=== PATIENT | male | born 1945 | race African-American/Black ===

== ENCOUNTER 2017-02-09 17:45 | Inpatient (IN) | payer MEDICARE ==
[~2017-02-09] VITALS: Ht 180.3 cm; Wt 113.0 kg
[~2017-02-09 17:45] MED LIST: ACCUPRIL5 MG PO; ACTOS30 MG OR; ADLT ASA LOW81 MG OR; AMITRIPTYLIN25 MG OR; AMITRIPTYLIN25 MG PO; BACTROBAN2 % EX; BL ASPIRIN325 MG PO; CEPHALEXIN500 MG OR; CIPROFLOXACN500 MG PO; DIGOX0.25 MG PO; DILAUDID 2MG2 MG/TA1 PO; DILTIAZEM240 M1 OR; DIOVAN320 MG PO; DIOVAN80 MG OR; DYRENIUM50 MG OR; ELAVIL25 MG PO; FERROUS SULF325 M2 PO; FUROSEMIDE40 MG PO; GABAPENTIN300 MG PO; HYDROCHLOROT50 MG OR; IMODIUM2 MG PO; ISOSORBIDE MONO30 MG PO; JANUVIA100 MG PO; KEFLEX500 M1 PO; KLOR-CON M2020 MEQ PO; LOSARTAN POTAS100 MG PO; LOVASTATIN20 M1 PO; LOVASTATIN20 MG PO; MAXIDE1 COMBO OR; MAXIDE1 COMBO PO; METFORMIN1000 MG PO; METOPROL TAR100 MG PO; METOPROL TAR50 MG OR; NITROQUICK0.4 MG SL; NOVOLIN 70/30 SC; PANTOPRAZOLE SO40 MG PO; PLAVIX75 MG OR; PROCARDIA XL30 MG PO; PROTONIX40 MG PO; RANITIDINE150 M1 OR; SIMVASTATIN80 MG OR; TRIAMT/HCTZ1 CAP OR; ULTRAM50 M1 PO; ZETIA10 MG OR; ZETIA10 MG PO
--- NOTE | 2017-02-09 17:57 | NUR ---
PT. TO ROOM 10 VIA EMS WITH C/O FALLING APPROX. 3 TIMES TODAY AFTER TRYING TO GO TO THE BATHROOM. PT. STATES HE HAS DIARRHEA FOR 2-3 DAYS. PT. TEMP. 101.3.
[2017-02-09] MEDS ORDERED: NOVOLIN 70/30 SC ×2 (18:38→18:39)
[2017-02-09 18:49] LABS: HEMATOCRIT 36.6 % (39.0-50.0); HEMOGLOBIN 11.5 g/dl (14.0-18.0); IMMATURE GRANULOCYTES 0.4 % (0.0-1.0); MEAN CORPUSCULAR HGB 26.1 pG CALC (26.0-32.0); MEAN CORPUSCULAR HGB CONC 31.4 g/L CALC (32.0-36.0); NEUT# 8.08 thou/uL (1.82-7.42); RED BLOOD COUNT 4.41 mill/uL (4.70-6.10); RED CELL DISTRI WIDTH 16.2 % (11.5-15.5)
--- NOTE | 2017-02-09 18:56 | NUR ---
PO TYLENOL AND PO MOTRIN GIVEN PER MD ORDER.
[2017-02-09 19:05] LABS: ALBUMIN 3.7 g/dL (3.2-5.0); BILIRUBIN, TOTAL 0.3 mg/dL (0.0-1.4); CALCIUM 9.1 mg/dL (8.4-10.2); CREATININE 1.5 mg/dL (0.7-1.3); POTASSIUM 3.9 mmol/l (3.5-5.1); TOTAL PROTEIN 7.4 g/dL (6.3-8.2)
[2017-02-09 19:24] LABS: C. DIFFICILE TOXIN A&B NEGATIVE (NEGATIVE)
--- NOTE | 2017-02-09 19:31 | NUR ---
1MP. D 50 IV GIVEN PER MD ORDER.
--- NOTE | 2017-02-09 20:00 | NUR ---
IV ABT. GIVEN PER MD ORDER.
--- NOTE | 2017-02-09 20:42 | NUR ---
PT. INCONTINENT OF A MODERATE AMT. SOFT MUCUS GREEN BM, NARENDRA CARE GIVEN.
--- NOTE | 2017-02-09 20:51 | NUR ---
MD IN ROOM TO DISCUSS CLINICAL FINDINGS WITH PT. AND ALSO MAKE HIM AWARE OF ADMISSION, VERBALIZED UNDERSTANDING.
--- NOTE | 2017-02-09 21:30 | NUR ---
Admission Note Report Given to: CAROLYNE HARMON Transported by: Wheelchair X Stretcher Transported with: X Nurse Transporter X Patent IV O2 X [employer] Sales Manager
--- NOTE | 2017-02-09 21:35 | NUR ---
TRANSFERED TO ICU VIA STRETCHER.
[2017-02-09 21:55] VITALS: BP 162/82
--- NOTE | 2017-02-09 23:53 | NUR ---
PT. PROVIDED WITH BLANKET. NO DIARRHEA AT THIS TIME. IV ANTIBIOTIC INFUSING WITHOUT SIGNS OF REACTION. PT. DENIES COMPLAINTS OF PAIN OR NEED AT THIS TIME. WILL CONTINUE TO REASSESS. DOOR PULLED FOR PATIENT PRIVACY.
[2017-02-10] VITALS (7 sets, daily range): BP systolic 135–175; BP diastolic 66–84
--- NOTE | 2017-02-10 00:32 | NUR ---
REMAINS WITHOUT INCONTINENCE AT THIS TIME. VSS. HR 90 SR. IV FLUIDS AND ANTIBIOTICS CONTINUE TO INFUSE WITHOUT SX OF INFILTRATION OR EXTRAVASATION. PT. PROVIDED WITH BLANKET AT THIS TIME. VOICES NO COMPLAINTS, CONCERNS, NEEDS OR PAIN AT THIS TIME. CALL LIGHT REMAIN WITHIN REACH.
[2017-02-10 01:58] LABS: URINE BILIRUBIN - DIPSTICK NEGATIVE (NEGATIVE); URINE BLOOD DIPSTICK LARGE (NEGATIVE); URINE CLARITY SLIGHT CLOUDY; URINE COLOR YELLOW; URINE GLUCOSE - DIPSTICK NEGATIVE (NEGATIVE); URINE KETONE NEGATIVE (NEGATIVE); URINE LEUK ESTERASE NEGATIVE (NEGATIVE); URINE NITRITE - DIPSTICK NEGATIVE (Negative); URINE PH 5.5 (4.5-8.0); URINE PROTEIN - DIPSTICK >=300 mg/dL (NEG-TRACE); URINE SPECIFIC GRAVITY >=1.030; URINE UROBILINOGEN - DIPSTICK 0.2 E.U./dL (0.2)
[2017-02-10 02:08] LABS: URINE BACTERIA FEW hpf; URINE COARSE GRANULAR CAST FEW lpf; URINE FINE GRAN CAST FEW lpf; URINE HYALINE CAST MODERATE lpf (NONE-RARE)
[2017-02-10 02:09] LABS: URINE AMORPH SEDIMENT FEW hpf (NONE-FER)
--- NOTE | 2017-02-10 02:45 | NUR ---
PT. RESTING IN BED WITH EYES CLOSED. PROVIDED WITH URINAL AT THIS TIME. APPROX 250 CC URINARY OUT PUT AT THIS TIME. IV FLUIDS CONTINUE TO INFUSE AT 125/HR. DENIES COMPLAINTS.
--- NOTE | 2017-02-10 05:30 | NUR ---
PT. CLEANSED OF STOOL AT THIS TIME. ALL LINENS CHANGED PT. IS INCONTINENT OF STOOL.
[2017-02-10 05:46] LABS: HEMATOCRIT 33.5 % (39.0-50.0); HEMOGLOBIN 10.4 g/dl (14.0-18.0); IMMATURE GRANULOCYTES 0.1 % (0.0-1.0); MEAN CELL VOLUME 83.3 fL CALC (80.0-100.0); MEAN CORPUSCULAR HGB 25.9 pG CALC (26.0-32.0); NEUT# 5.95 thou/uL (1.82-7.42); RED BLOOD COUNT 4.02 mill/uL (4.70-6.10); RED CELL DISTRI WIDTH 15.9 % (11.5-15.5)
[2017-02-10 06:05] LABS: ANION GAP 13 (6-22 (CALC)); BUN 12 mg/dL (8-23); BUN/CREATININE RATIO 9 (12-20 (CALC)); CARBON DIOXIDE 24 mmol/l (22-30); CHLORIDE 106 mmol/l (95-108); CREATININE 1.3 mg/dL (0.7-1.3); GFR 55 ML/MIN (>=60 (CALC)); GFR FOR AFR.AMER. > 60 ML/MIN (>=60 (CALC)); GLUCOSE 94 mg/dL (82-115); POTASSIUM 3.6 mmol/l (3.5-5.1); SODIUM 140 mmol/l (137-146)
--- NOTE | 2017-02-10 08:45 | NUR ---
PT ARRIVED FROM ICU VIA WC ACCOMPANIED BY STAFF, IV SITE IS FREE FROM REDNESS OR EDEMA. ASSESSMENT IS COMPLETED. CONTINUE TO OSBERVE AND MONITOR.
--- NOTE | 2017-02-10 12:15 | NUR ---
PT IS RELAXING IN BED HAS BEEN INCONTINENT OF BOWEL. AND BLADDER. IV SITE IS FREE FROM REDNESS OR EDEMA. CONTINUE TO OSBERVE AND MONITOR.
--- NOTE | 2017-02-10 12:15 | NUR ---
PT HAS BEEN CLEANED UP DUE TO INCONTINENT OF BOWEL. CONTINUE TO OSBERVE AND MONITOR.
--- NOTE | 2017-02-10 16:30 | NUR ---
PT IS RESTING IN BED WITH NO DISTRESS NOTED. IV SITE IS FREE FROM REDNESS OR EDEMA. CONTINUE TO OSBERVE AND MONITOR.
--- NOTE | 2017-02-10 19:00 | NUR ---
BEDSIDE REPORT RECEIVED FROM JUN CAMACHO. PT SITTING UP IN BED WATCHING TV. DENIES PAIN AT THIS TIME. RESPIRATIONS EVEN AND UNLABORED. PLAN OF CARE DISCUSSED. PT ENCOURAGED TO VERBALIZE CONCERNS. STATES UNDERSTANDING. SAFETY MEASURES IN PLACE. CALL LIGHT WITHIN REACH.
[2017-02-11 00:25] VITALS: BP 122/68
--- NOTE | 2017-02-11 00:47 | NUR ---
PT AWAKENS SPONSTANEOUSLY. DENIES PAIN AT THIS TIME. RESPIRATIONS EVEN AND UNLABOARED. ABT INFUSED WITH NO ADVERSE EFFECTES NOTED. INCONTINENT OF BLADDER THIS SHIFT, NARENDRA CARE GIVEN. ALSO USING URINAL. SAFETY MEASURES IN PLACE. CALL LIGHT WITHIN REACH.
--- NOTE | 2017-02-11 04:00 | NUR ---
PT ASLEEP AT THIS TIME. NO SIGNS OF DISTRESS NOTED. RESPIRATIONS EVEN AND UNLABORED. NO CHANGES IN ASSESSMENT NOTED. SAFETY MEASURES IN PLACE. CALL LIGHT WITHIN REACH.
[2017-02-11 04:25] VITALS: BP 141/77
[2017-02-11 06:00] LABS: HEMATOCRIT 32.7 % (39.0-50.0); HEMOGLOBIN 10.1 g/dl (14.0-18.0); IMMATURE GRANULOCYTES 0.1 % (0.0-1.0); MEAN CELL VOLUME 83.4 fL CALC (80.0-100.0); MEAN CORPUSCULAR HGB 25.8 pG CALC (26.0-32.0); MEAN CORPUSCULAR HGB CONC 30.9 g/L CALC (32.0-36.0); NEUT# 4.85 thou/uL (1.82-7.42); RED BLOOD COUNT 3.92 mill/uL (4.70-6.10); RED CELL DISTRI WIDTH 15.9 % (11.5-15.5)
[2017-02-11 06:22] LABS: ANION GAP 12 (6-22 (CALC)); BUN 8 mg/dL (8-23); BUN/CREATININE RATIO 7 (12-20 (CALC)); CALCIUM 7.8 mg/dL (8.4-10.2); CARBON DIOXIDE 24 mmol/l (22-30); CHLORIDE 108 mmol/l (95-108); CREATININE 1.1 mg/dL (0.7-1.3); GFR > 60 ML/MIN (>=60 (CALC)); GFR FOR AFR.AMER. > 60 ML/MIN (>=60 (CALC)); GLUCOSE 57 mg/dL (82-115); POTASSIUM 3.2 mmol/l (3.5-5.1); SODIUM 142 mmol/l (137-146)
--- NOTE | 2017-02-11 07:16 | NUR ---
REPORT RECIEVED FROM JUN JURADO; PT RESTING IN BED WITH EYES CLOSED; NO S/S OF DISTRESS NOTED; FALL PRECAUTIONS IN PLACE; CALL LIGHT WITHIN REACH; WILL CONTINUE TO MONITOR
[2017-02-11 08:21] VITALS: BP 150/87
--- NOTE | 2017-02-11 10:06 | NUR ---
OOB WITH MOD. INDEP. HOLDING ONTO THE RAILS. WITH MIN A ON SIT TO STAND. PT APPEARED UNSTABLE ON STATIC STANDING POSITION WITH COMPLAINTS OF WEAKNESS ON B LE. HE ALSO STATED THAT HE WAS DIZZY. HE DID EX. SUCH MARCHES IN PLACE WITH WALKER, SAQ WITH 10 SEC. HOLD X 10 REPS AND RESISTED KNEE FLEXION IN SITTING POSITION 10 SEC. HOLD X 10 REPS. PT RETURNED TO SUPINE POSITION WITH MOD. INDEP. ADVISED PT TO CONTINUE DOING EXERCISES. LEFT PT WITH CALL DAVIS BESIDE HIM.
[2017-02-11 11:31] VITALS: BP 130/72
--- NOTE | 2017-02-11 12:00 | NUR ---
PT SITTING UP IN BED; NO S/S OF DISTRESS NOTED; PT C/O CONTINUED DIARRHEA; DENIES ANY PAIN AT THIS TIME; FALL PRECAUTIONS IN PLACE; CALL LIGHT WITHIN REACH; WILL CONTINUE TO MONITOR
[2017-02-11 15:30] VITALS: BP 152/82
[2017-02-11 19:25] VITALS: BP 163/84
--- NOTE | 2017-02-11 19:44 | NUR ---
awake in bed; offers no complaints; assessment completed; pt alert and oriented; denies pain; no n/v noted; resp even and unlabored; pulses present; tele monitor intact; abd soft with bs present; pt admits to several incont of diarrhea; voiding without complication; #20 in lac patent with ivf infusing without complication; no redness or edema noted at site; pt encouraged to repositioned self freq to prevent skin breakdown r/t incont of stools; pm meds/ plan of care explained; call light within reach; will continue to monitor
--- NOTE | 2017-02-11 21:12 | NUR ---
accucheck 219; pm meds explained and administered; hs snack provided; will continue to monitor
[2017-02-12 00:05] VITALS: BP 158/83
--- NOTE | 2017-02-12 00:16 | NUR ---
awake in bed; complaints of increasing pain at lac iv site; iv flushed and patent; increasing pain when flushed; catheter removed with tip intact; #20 started in rh x2 attempts per g leticia lin; ivf resumed; call light within reach; will continue to monitor
--- NOTE | 2017-02-12 03:54 | NUR ---
awake; no distress noted; pt offers no complaints; iv patent; no redness or edema noted at site; tele; call light within reach; will continue to monitor
--- NOTE | 2017-02-12 04:18 | NUR ---
test lab technician at bedside; pt offers no complaints; will continue to monitor
[2017-02-12 04:35] VITALS: BP 155/88
[2017-02-12 05:23] LABS: HEMATOCRIT 35.8 % (39.0-50.0); IMMATURE GRANULOCYTES 0.3 % (0.0-1.0); MEAN CELL VOLUME 83.1 fL CALC (80.0-100.0); MEAN CORPUSCULAR HGB 25.5 pG CALC (26.0-32.0); MEAN CORPUSCULAR HGB CONC 30.7 g/L CALC (32.0-36.0); NEUT# 6.91 thou/uL (1.82-7.42); RED BLOOD COUNT 4.31 mill/uL (4.70-6.10); RED CELL DISTRI WIDTH 15.7 % (11.5-15.5)
--- NOTE | 2017-02-12 05:33 | NUR ---
asleep; easily aroused; offers no complaints; no distress noted; call light within reach
[2017-02-12 05:43] LABS: ANION GAP 15 (6-22 (CALC)); BUN 4 mg/dL (8-23); BUN/CREATININE RATIO 5 (12-20 (CALC)); CALCIUM 8.1 mg/dL (8.4-10.2); CARBON DIOXIDE 22 mmol/l (22-30); CHLORIDE 110 mmol/l (95-108); CREATININE 0.9 mg/dL (0.7-1.3); GFR > 60 ML/MIN (>=60 (CALC)); GFR FOR AFR.AMER. > 60 ML/MIN (>=60 (CALC)); GLUCOSE 72 mg/dL (82-115); POTASSIUM 3.5 mmol/l (3.5-5.1); SODIUM 143 mmol/l (137-146)
--- NOTE | 2017-02-12 06:01 | NUR ---
0550- ER [facility] TECH REPORTING 18 BEAT V-TACH; PT ASLEEP; EASILY AROUSED; DENIES PALPITATIONS/CHEST PAIN; NO SOB NOTED; V-TACH REPORTED TO DR MARIE
--- NOTE | 2017-02-12 07:00 | NUR ---
SHIFT CHANGE REPORT FROM MIKHAIL STACY AWAKE ALERT AND ORIENTED, IVF INFUSING, TELE MONITOR IN PLACE, CALL DAVIS IN REACH.
[2017-02-12 08:35] VITALS: BP 166/81
[2017-02-12] MEDS ORDERED: FLORASTOR250 M1 PO (11:38)
[2017-02-12] MEDS ORDERED: CIPROFLOXACIN500 M1 PO (11:38)
[2017-02-12 12:43] VITALS: BP 147/76
--- NOTE | 2017-02-12 14:43 | NUR ---
Discharge instructions given. Patient verbalizes understanding of same. Discharged in stable condition via [facility] with *[facility]. All belongings sent with pt.
--- NOTE | 2017-02-12 14:50 | NUR ---
Pt seen at 1:15 this pm for ther ex and mobility. He was in bed, stated he needed to be cleaned up and waiting for SHEET METAL FABRICATOR. Pt rolled side to side using bed rail, therapist clean pt of very min amount of stool on pad and min amounts on skin. Pt moved supine to sit with mod assist. LE ex performed in sitting. Pt had tendency to lean posterior causing hip ext and required verbal and physical cues/assist to stay forward in sitting. Pt stated at home his knees gave way with standing. Pt stood x2 with walker and CGA, he required verbal cue for safety issues, did not reach for bed before sitting (bed was raise when he stood from it to make it easier for him). Pt returned to bed with assist to place LEs on bed. Pt left in bed with call curtis and phone in reach.
--- NOTE | 2017-02-12 14:53 | NUR ---
REPORT GIVEN TO AUGUSTA @ [facility], PT JUST LEFT UNIT VIA W/C WITH TRANSPORTER.
== END 2017-02-12 14:30 | DRG 373 ==
LOC: EDPENDDISTM → EDPENDDISDT → ENPENDDIS → ED 17:45 → ED-I 19:53 → ED 20:14 → ICU 20:15 → MS2 20:15 → UNDODEPER 02-10 21:35 → MS2 02-11 11:35
PROVIDERS: Emergency Medicine; Internal Medicine; ADMIT Internal Medicine; ATTEND Internal Medicine
DX: A04.5 Campylobacter enteritis (principal); E11.649 Type 2 diabetes mellitus with hypoglycemia without coma; A02.0 Salmonella enteritis; E86.0 Dehydration; I10 Essential (primary) hypertension; M19.90 Unspecified osteoarthritis, unspecified site; E78.5 Hyperlipidemia, unspecified; E87.6 Hypokalemia; R42 Dizziness and giddiness; R53.1 Weakness; I25.10 Atherosclerotic heart disease of native coronary artery without angina pectoris; G89.29 Other chronic pain; M54.2 Cervicalgia; M54.9 Dorsalgia, unspecified; Z79.4 Long term (current) use of insulin; Z95.5 Presence of coronary angioplasty implant and graft; Z87.891 Personal history of nicotine dependence

== ENCOUNTER 2017-08-07 03:32 | Emergency (ER) | payer MEDICARE ==
[~2017-08-07 03:32] MED LIST changes: +CIPROFLOXACIN500 M1 PO; +FLORASTOR250 M1 PO
--- NOTE | 2017-08-07 04:07 | NUR ---
PATIENT RECEIVED INTUBATED. NURSE LISTENED TO BILATERAL BREATH SOUND WHILE RT WAS AMBUING THE PATIENT FOR ET TUBE PLACEMENT. MD DRAWN ABG FROM FEMORAL ARTERY. ABG RESULT AVAILABLE ON [facility]. PLACED ON VENTILATOR SOON THE PATIENT HAD A PULSE AND HEART RATE WITH THE FOLLOWING SETTING. AC 20, 550 VT, 100% OXYGEN AND 5 OF PEEP. WILL CONTINUE TO MONITOR THE PATIENT THROUGHTOUT THE REST OF THE SHIFT.
[2017-08-07 04:17] LABS: ALBUMIN 3.6 g/dL (3.2-5.0); BILIRUBIN, TOTAL 0.3 mg/dL (0.0-1.4); CALCIUM 8.2 mg/dL (8.4-10.2); CREATININE 1.9 mg/dL (0.7-1.3)
[2017-08-07 04:18] LABS: HEMATOCRIT 35.9 % (39.0-50.0); HEMOGLOBIN 10.5 g/dl (14.0-18.0); IMMATURE GRANULOCYTES 3.7 % (0.0-1.0); MEAN CELL VOLUME 88.4 fL CALC (80.0-100.0); MEAN CORPUSCULAR HGB 25.9 pG CALC (26.0-32.0); MEAN CORPUSCULAR HGB CONC 29.2 g/L CALC (32.0-36.0); NEUT# 10.83 thou/uL (1.82-7.42); RED BLOOD COUNT 4.06 mill/uL (4.70-6.10); RED CELL DISTRI WIDTH 15.6 % (11.5-15.5)
--- NOTE | 2017-08-07 04:26 | NUR ---
TUBE 7.5 AT 27CM OF THE LIPS.
[2017-08-07] MEDS ORDERED: METOLAZONE2.5 MG PO (04:38)
[2017-08-07 04:44] LABS: INTERNATIONAL NORMALIZED RATIO 0.9 RATIO (0.7-1.3); PROTHROMBIN TIME 10.1 SECONDS (9.0-12.5)
[2017-08-07 05:19] VITALS: BP 104/43
[2017-08-07 06:55] LABS: C. DIFFICILE TOXIN A&B NEGATIVE (NEGATIVE)
== END 2017-08-07 05:30 | disposition short-term general hospital (02) ==
LOC: ED 03:32
PROVIDERS: Emergency Medicine
PROC: 0T9B70Z Drainage of Bladder with Drainage Device, Via Natural or Artificial Opening (ICD-10-PCS; principal; 2017-08-07)
PROC: 0BH17EZ Insertion of Endotracheal Airway into Trachea, Via Natural or Artificial Opening (ICD-10-PCS; 2017-08-07)
DX: I46.9 Cardiac arrest, cause unspecified (principal); R00.0 Tachycardia, unspecified; J18.9 Pneumonia, unspecified organism; R56.9 Unspecified convulsions
CPT/HCPCS: J2060; J3360